=== PATIENT | female | born 1935 | race Caucasian/White ===

== ENCOUNTER 2017-08-29 02:46 | Emergency (ER) | payer BC ==
[~2017-08-29] VITALS: Ht 165.1 cm; Wt 63.5 kg
[~2017-08-29 02:46] MED LIST: ALBU18HF2 IH; ASPI-495; LISI20TA PO; PRED10TA PO
--- NOTE | 2017-08-29 03:00 | NUR ---
82 YO FEMALE BB SELF. PATIENT IS ALERT AND ORIENTED, C/O THROAT PAIN. PATIENT AMBULATED TO ER BED, SKIN WARM AND DRY, RESP EVEN AND UNLABORED. AWAITING ORDERS FROM PROVIDER, WILL CONTINUE TO MONITOR
--- NOTE | 2017-08-29 03:12 | NUR ---
PAT[address]ICK [address]RE[address] MD AT BED SIDE FOR EVAL
[2017-08-29] MEDS ORDERED: BENZONATATE 100 MG CAPSULE PO PRN (03:30)
[2017-08-29] MEDS ORDERED: ACETAMINOPHEN W/ CODEINE#3 1 EA TABLET PO ONE (03:30)
[2017-08-29] MEDS ORDERED: ACETAMINOPHEN W/ CODEINE#3 1 EA TABLET ONE (03:34)
[2017-08-29 03:49] LABS: BASOPHILS % (AUTO) 0.3 % (0.0-2.0); EOSINOPHILS % (AUTO) 2.6 % (0.0-6.0); HEMATOCRIT 43 % (33-45); HEMOGLOBIN 14.9 g/dL (11.5-14.8); LYMPHOCYTES # (AUTO) 0.9 /CMM (0.8-4.8); LYMPHOCYTES % (AUTO) 10.6 % (20.0-44.0); MEAN CORPUSCULAR HGB CONC 35 g/dl (31.0-36.0); MEAN CORPUSCULAR VOLUME 92 fL (82-100); MONOCYTES # (AUTO) 0.6 /CMM (0.1-1.30); MONOCYTES % (AUTO) 7.2 % (2.0-12.0); NEUTROPHILS # (AUTO) 6.9 /CMM (1.8-8.9); NEUTROPHILS % (AUTO) 79.3 % (43.0-81.0); PLATELET COUNT (AUTO) 233 /CMM (150-450); RDW COEFFICIENT OF VARIATION 13.2 (11.5-15.0); RED BLOOD CELL COUNT(AUTO) 4.63 MIL/uL (4.0-5.2); WHITE BLOOD COUNT (AUTO) 8.7 K/uL (4.3-11.0)
[2017-08-29 03:50] LABS: APPEARANCE,URINE CLEAR (CLEAR); BILIRUBIN,URINE NEGATIVE (NEGATIVE); BLOOD, URINE TRACE-INTA Ery/uL (NEGATIVE); COLOR,URINE YELLOW (YELLOW); KETONES,URINE NEGATIVE (NEGATIVE); LEUKOCYTE ESTERASE ,URINE NEGATIVE (NEGATIVE); NITRITE, URINE NEGATIVE (NEGATIVE); PH,URINE 7.5 (5.0-8.0); PROTEIN,URINE NEGATIVE (NEGATIVE); UGLUCOSE NEGATIVE (NEGATIVE); UROBILINOGEN,URINE 0.2 EU/dL (0.2)
[2017-08-29 03:55] LABS: BACTERIA,URINE Few /HPF (None Seen); SQUAMOUS EPITHELIAL CELL,UR Few /HPF (None Seen); WBC,URINE 0-2 /HPF (0-3)
[2017-08-29 04:09] LABS: ALANINE AMINOTRANSFERASE 21 U/L (12-78); ALBUMIN 3.6 g/dL (3.4-5.0); ALCOHOL, BLOOD < 3 mg/dL (0-0); ALKALINE PHOSPHATASE 63 U/L (46-116); ASPARTATE AMINOTRANSFERASE 22 U/L (15-37); BILIRUBIN,DIRECT 0.1 mg/dL (0.0-0.2); BILIRUBIN,TOTAL 1.2 mg/dL (0.2-1.0); CALCIUM, SERUM 9.2 mg/dL (8.5-10.1); CARBON DIOXIDE 30 mmol/L (21-32); CHLORIDE 100 mmol/L (98-107); GLUCOSE 114 mg/dL (74-106); POTASSIUM 3.1 mmol/L (3.5-5.1); SODIUM SERUM 138 mmol/L (136-145); TOTAL PROTEIN, SERUM 7.5 g/dL (6.4-8.2); UREA NITROGEN, BLOOD 14 mg/dL (7-18)
[2017-08-29 04:15] LABS: ACETAMINOPHEN 0 ug/ml (10-30)
[2017-08-29 04:17] LABS: SALICYLATE < 0.2 mg/dL (2.8-20.0)
--- NOTE | 2017-08-29 04:20 | NUR ---
ART LCWS AT BED SIDE FOR PSYCH EVAL
[2017-08-29] MEDS ORDERED: POTASSIUM CHLORIDE 20 MEQ TAB.PRT.SR PO ONE ×2 (04:30→04:33)
[2017-08-29] MEDS ORDERED: POTASSIUM CHLORIDE 20 MEQ POWDER PACKET ONE (04:36)
[2017-08-29 05:20] VITALS: BP 160/86
--- NOTE | 2017-08-29 05:20 | NUR ---
Patient discharged to home in stable condition. Written and verbal after care instructions given. Patient verbalizes understanding of instruction. PT ambulatory with a steady gait VITAL SIGNS WITHIN NORMAL LIMITS.
== END 2017-08-29 05:21 | disposition home or self-care (01) ==
LOC: ER 02:46
DX: J02.8 Acute pharyngitis due to other specified organisms (principal); F32.9 Major depressive disorder, single episode, unspecified; F41.9 Anxiety disorder, unspecified; I25.2 Old myocardial infarction; J45.909 Unspecified asthma, uncomplicated; E78.5 Hyperlipidemia, unspecified; I10 Essential (primary) hypertension; Z79.82 Long term (current) use of aspirin
CPT/HCPCS: 36415; 80048; 80076; 80305; 80329; 81001; 85025; 99284; A4606; G0480 ×2; 81000-TC; Z7610

== ENCOUNTER 2017-08-30 06:20 | Emergency (ER) | payer BC ==
[~2017-08-30] VITALS: Ht 152.4 cm; Wt 63.5 kg
--- NOTE | 2017-08-30 06:30 | NUR ---
PT PRESENTED TO THE ER WITH A C/O SORE THROAT X 4 DAYS. PT WAS HERE THE OTHER DAY AND WAS DX WITH VIRAL PHARYNGITIS. PT IS AA&O X3.
[2017-08-30] MEDS ORDERED: KETOROLAC TROMETHAMINE INJ 30 MG/ML VIAL ONE (06:42)
[2017-08-30] MEDS ORDERED: DEXAMETHASONE SOD PHOSPHATE 10 MG/ML VIAL ONE (06:42)
[2017-08-30] MEDS ORDERED: IOHEXOL-300 100 ML VIAL IV ONE (06:55)
[2017-08-30] MEDS ORDERED: CT SWABBABLE VALVE TRANS SET 1 EA INFUS.SET MC ONE (06:55)
[2017-08-30 06:56] LABS: BASOPHILS % (AUTO) 0.5 % (0.0-2.0); EOSINOPHILS % (AUTO) 2.6 % (0.0-6.0); HEMATOCRIT 41 % (33-45); HEMOGLOBIN 14.2 g/dL (11.5-14.8); MEAN CORPUSCULAR HGB CONC 35 g/dl (31.0-36.0); MEAN CORPUSCULAR VOLUME 93 fL (82-100); MONOCYTES # (AUTO) 0.5 /CMM (0.1-1.30); MONOCYTES % (AUTO) 6.9 % (2.0-12.0); PLATELET COUNT (AUTO) 216 /CMM (150-450); RDW COEFFICIENT OF VARIATION 12.8 (11.5-15.0); RED BLOOD CELL COUNT(AUTO) 4.39 MIL/uL (4.0-5.2); WHITE BLOOD COUNT (AUTO) 7.8 K/uL (4.3-11.0)
[2017-08-30] MEDS ORDERED: IV NS 0.9% 250 ML IV ONE (06:56)
[2017-08-30] MEDS ORDERED: KETOROLAC TROMETHAMINE INJ 30 MG/ML VIAL IV ONE (07:00)
[2017-08-30] MEDS ORDERED: IV NS 0.9% 500 ML BAG IV ONE (07:00)
[2017-08-30] MEDS ORDERED: DEXAMETHASONE SOD PHOSPHATE 10 MG/ML VIAL IV ONE (07:00)
[2017-08-30 07:06] LABS: CALCIUM, SERUM 8.9 mg/dL (8.5-10.1); CARBON DIOXIDE 29 mmol/L (21-32); CHLORIDE 101 mmol/L (98-107); GLUCOSE 111 mg/dL (74-106); POTASSIUM 3.3 mmol/L (3.5-5.1); SODIUM SERUM 138 mmol/L (136-145); UREA NITROGEN, BLOOD 16 mg/dL (7-18)
[2017-08-30 07:12] LABS: ALANINE AMINOTRANSFERASE 21 U/L (12-78); ALBUMIN 3.6 g/dL (3.4-5.0); ALKALINE PHOSPHATASE 60 U/L (46-116); ASPARTATE AMINOTRANSFERASE 23 U/L (15-37); BILIRUBIN,DIRECT 0.2 mg/dL (0.0-0.2); BILIRUBIN,TOTAL 1.1 mg/dL (0.2-1.0); TOTAL PROTEIN, SERUM 7.4 g/dL (6.4-8.2)
[2017-08-30 07:14] LABS: TROPONIN I < 0.017 ng/mL (0.00-0.056)
--- NOTE | 2017-08-30 07:14 | NUR ---
PT RETURNED FOM CT.
[2017-08-30] MEDS ORDERED: MORPHINE SULFATE INJ 4 MG/ML DISP.SYRIN ONE (07:19)
--- NOTE | 2017-08-30 07:20 | NUR ---
REPORT GIVEN TO NOELLE MOONEY FOR JUANCARLOS.
--- NOTE | 2017-08-30 07:22 | NUR ---
MEDICATED PT ORDERED
[2017-08-30] MEDS ORDERED: MORPHINE SULFATE INJ 2 MG/ML DISP.SYRIN IV ONE (07:30)
[2017-08-30 07:58] VITALS: BP 126/76
--- NOTE | 2017-08-30 08:01 | NUR ---
IV removed. Catheter intact and site benign. Pressure and 4x4 applied to site. No bleeding noted. Patient discharged to home in stable condition. Written and verbal after care instructions given. Patient verbalizes understanding of instruction.
== END 2017-08-30 08:00 | disposition home or self-care (01) ==
LOC: ER 06:25
DX: J02.9 Acute pharyngitis, unspecified (principal); R07.0 Pain in throat; I10 Essential (primary) hypertension; J45.909 Unspecified asthma, uncomplicated; I25.2 Old myocardial infarction; E78.5 Hyperlipidemia, unspecified; F32.9 Major depressive disorder, single episode, unspecified; Z79.82 Long term (current) use of aspirin
CPT/HCPCS: 36415; 70491; 80048; 80076; 84484; 85025; 96374; 96375; 99285; A4606; J1100; J1885; J2270; J7040; J7050; Q9967; Z7610

== ENCOUNTER 2018-08-07 11:52 | Emergency (ER) | payer BC ==
[~2018-08-07] VITALS: Ht 152.4 cm; Wt 63.5 kg
[~2018-08-07 11:52] MED LIST changes: -ASPI-495; +ASPI-495 PO
--- NOTE | 2018-08-07 12:01 | NUR ---
BIB DAUGHTER C/O DIZZINESS STARTED LAST NIGHT, +N/V. PT PRESENTS WITH FACIAL GRIMACING, MOVEMENT MAKES IT WORSE. SHE IS AOX3, VSS, AMBULATORY, RR EVEN AND UNLABORED. MAURITANIAN- AND TAMAZIGHT-SPEAKING. HOOKED TO MONITOR AND MADE COMFORTABLE. READY FOR EVAL.
[2018-08-07] MEDS ORDERED: ONDANSETRON HCL/PF 4 MG/2 ML VIAL ONE (12:02)
[2018-08-07] MEDS ORDERED: MECLIZINE HCL 12.5 MG TABLET ONE (12:03)
[2018-08-07 12:30] LABS: BASOPHILS % (AUTO) 0.5 % (0.0-2.0); EOSINOPHILS % (AUTO) 1.2 % (0.0-6.0); HEMATOCRIT 43 % (33-45); LYMPHOCYTES # (AUTO) 0.7 /CMM (0.8-4.8); LYMPHOCYTES % (AUTO) 11.4 % (20.0-44.0); MEAN CORPUSCULAR HGB CONC 35 g/dl (31.0-36.0); MEAN CORPUSCULAR VOLUME 90 fL (82-100); MONOCYTES # (AUTO) 0.2 /CMM (0.1-1.30); MONOCYTES % (AUTO) 3.1 % (2.0-12.0); NEUTROPHILS # (AUTO) 5.2 /CMM (1.8-8.9); NEUTROPHILS % (AUTO) 83.8 % (43.0-81.0); PLATELET COUNT (AUTO) 222 /CMM (150-450); RED BLOOD CELL COUNT(AUTO) 4.81 MIL/uL (4.0-5.2); WHITE BLOOD COUNT (AUTO) 6.2 K/uL (4.3-11.0)
[2018-08-07] MEDS: IV NS 0.9% 500 ML BAG IV ONE (12:32)
[2018-08-07] MEDS: ONDANSETRON HCL/PF 4 MG/2 ML VIAL IVP ONE (12:33)
[2018-08-07] MEDS: MECLIZINE HCL 12.5 MG TABLET PO ONE (12:33)
[2018-08-07] MEDS ORDERED: IPRATROPIUM NEB FS 0.5 MG/2.5 ML AMPUL.NEB ONE (12:39)
[2018-08-07] MEDS ORDERED: ALBUTEROL FS 2.5 MG/3 ML VIAL.NEB ONE (12:39)
[2018-08-07 12:42] LABS: CALCIUM, SERUM 9.1 mg/dL (8.5-10.1); CARBON DIOXIDE 28 mmol/L (21-32); CHLORIDE 100 mmol/L (98-107); GLUCOSE 154 mg/dL (74-106); SODIUM SERUM 137 mmol/L (136-145); UREA NITROGEN, BLOOD 19 mg/dL (7-18)
[2018-08-07] MEDS: ALBUTEROL FS 2.5 MG/3 ML VIAL.NEB NEB ONE (12:42)
[2018-08-07] MEDS: IPRATROPIUM NEB FS 0.5 MG/2.5 ML AMPUL.NEB NEB ONE (12:42)
[2018-08-07] MEDS ORDERED: methylPREDNISolone SOD SUCC 125 MG/2ML VIAL ONE (12:46)
[2018-08-07] MEDS ORDERED: DIAZEPAM 5 MG/ML 2 ML DISP.SYRIN ONE (12:47)
[2018-08-07 12:48] LABS: ALANINE AMINOTRANSFERASE 26 U/L (12-78); ALBUMIN 3.5 g/dL (3.4-5.0); ALKALINE PHOSPHATASE 52 U/L (46-116); ASPARTATE AMINOTRANSFERASE 34 U/L (15-37); BILIRUBIN,DIRECT 0.1 mg/dL (0.0-0.2); BILIRUBIN,TOTAL 0.9 mg/dL (0.2-1.0); TOTAL PROTEIN, SERUM 7.4 g/dL (6.4-8.2)
[2018-08-07] MEDS: DIAZEPAM 5 MG/ML 2 ML DISP.SYRIN IV ONE (12:55)
[2018-08-07] MEDS: methylPREDNISolone SOD SUCC 125 MG/2ML VIAL IV ONE (12:56)
--- NOTE | 2018-08-07 12:56 | NUR ---
PT BACK FROM CT. MEDS GIVEN. CURRENTLY ON BREATHING TX. AL WELL, WILL CONT TO MONITOR.
[2018-08-07] MEDS ORDERED: HYDR12.55 PO (13:11)
--- NOTE | 2018-08-07 13:39 | NUR ---
IV removed. Catheter intact and site benign. Pressure and 4x4 applied to site. No bleeding noted.Patient discharged to home in stable condition. Written and verbal after care instructions given. Patient verbalizes understanding of instruction.
[2018-08-07 13:40] VITALS: BP 112/73
== END 2018-08-07 13:42 | disposition home or self-care (01) ==
LOC: ER 11:52
DX: R42 Dizziness and giddiness (principal); I10 Essential (primary) hypertension; I25.2 Old myocardial infarction; J45.909 Unspecified asthma, uncomplicated; E78.5 Hyperlipidemia, unspecified; F32.9 Major depressive disorder, single episode, unspecified; Z79.82 Long term (current) use of aspirin
CPT/HCPCS: 36415; 70450; 71045; 80048; 80076; 84484; 85025; 93005; 94640; 96374; 96375; 99284; J2405; J2930; J3360; J7040; J8597

== ENCOUNTER 2018-11-26 21:59 | Emergency (ER) | payer BC ==
[~2018-11-26] VITALS: Ht 152.4 cm; Wt 65.8 kg
[~2018-11-26 21:59] MED LIST changes: +HYDR12.55 PO; -LISI20TA PO; -PRED10TA PO
[2018-11-26] MEDS ORDERED: ONDANSETRON HCL/PF 4 MG/2 ML VIAL ONE (22:48)
[2018-11-26] MEDS ORDERED: MORPHINE SULFATE INJ 4 MG/ML DISP.SYRIN ONE (22:48)
[2018-11-26 22:51] LABS: BASOPHILS # (AUTO) 0.1 /CMM (0.0-0.2); BASOPHILS % (AUTO) 0.7 % (0.0-2.0); EOSINOPHILS % (AUTO) 2.5 % (0.0-6.0); HEMATOCRIT 40 % (33-45); HEMOGLOBIN 14.2 g/dL (11.5-14.8); LYMPHOCYTES % (AUTO) 20.8 % (20.0-44.0); MEAN CORPUSCULAR HGB CONC 36 g/dl (31.0-36.0); MEAN CORPUSCULAR VOLUME 88 fL (82-100); MONOCYTES # (AUTO) 0.7 /CMM (0.1-1.30); MONOCYTES % (AUTO) 7.6 % (2.0-12.0); NEUTROPHILS # (AUTO) 6.4 /CMM (1.8-8.9); NEUTROPHILS % (AUTO) 68.4 % (43.0-81.0); PLATELET COUNT (AUTO) 290 /CMM (150-450); RED BLOOD CELL COUNT(AUTO) 4.51 MIL/uL (4.0-5.2); WHITE BLOOD COUNT (AUTO) 9.4 K/uL (4.3-11.0)
[2018-11-26] MEDS ORDERED: MORPHINE SULFATE INJ 2 MG/ML DISP.SYRIN IV ONE (23:00)
[2018-11-26] MEDS ORDERED: IV NS 0.9% 1,000 ML BAG IV ONE (23:00)
[2018-11-26] MEDS ORDERED: ONDANSETRON HCL/PF 4 MG/2 ML VIAL IVP ONE (23:00)
[2018-11-26 23:04] LABS: CALCIUM, SERUM 9.4 mg/dL (8.5-10.1); CARBON DIOXIDE 29 mmol/L (21-32); CHLORIDE 94 mmol/L (98-107); CREATININE 1.2 mg/dL (0.6-1.3); GLUCOSE 98 mg/dL (74-106); POTASSIUM 3.1 mmol/L (3.5-5.1); SODIUM SERUM 131 mmol/L (136-145); UREA NITROGEN, BLOOD 18 mg/dL (7-18)
[2018-11-27 00:26] LABS: APPEARANCE,URINE Clear (CLEAR); BILIRUBIN,URINE Negative (NEGATIVE); BLOOD, URINE Trace-intact Ery/uL (NEGATIVE); COLOR,URINE Yellow (YELLOW); KETONES,URINE Negative (NEGATIVE); LEUKOCYTE ESTERASE ,URINE Trace (NEGATIVE); NITRITE, URINE Negative (NEGATIVE); PROTEIN,URINE 100 mg/dl (NEGATIVE); UGLUCOSE Negative (NEGATIVE); UROBILINOGEN,URINE 0.2 EU/dL (0.2)
[2018-11-27 00:33] LABS: BACTERIA,URINE Few /HPF (None Seen); SQUAMOUS EPITHELIAL CELL,UR Few /HPF (None Seen); WBC,URINE 51-80 /HPF (0-3)
[2018-11-27] MEDS ORDERED: CEFTRIAXONE 1GM BAG (ER ONLY) 1 GM/50 ML PIGGYBACK IV ONE (01:00)
[2018-11-27] MEDS ORDERED: CEFTRIAXONE 1GM BAG (ER ONLY) 50 ML IV ONE (01:02)
[2018-11-27 02:20] VITALS: BP 123/67
== END 2018-11-27 01:45 | disposition home or self-care (01) ==
LOC: ER 22:06
DX: N39.0 Urinary tract infection, site not specified (principal); I10 Essential (primary) hypertension; I25.2 Old myocardial infarction; J45.909 Unspecified asthma, uncomplicated; E78.5 Hyperlipidemia, unspecified; F32.9 Major depressive disorder, single episode, unspecified; Z79.82 Long term (current) use of aspirin; Z79.899 Other long term (current) drug therapy
CPT/HCPCS: 36415; 74176; 80048; 81001; 85025; 87040 ×2; 96365; 96375; 99284; J0696; J2270; J2405; J7030; 81000-TC; 87086-TC

== ENCOUNTER → 2018-11-27 | Emergency (ER) | payer BC ==
[~2018-11-27] VITALS: Ht 154.9 cm; Wt 64.4 kg
[2018-11-27 11:24] VITALS: BP 143/99
--- NOTE | 2018-11-27 11:47 | NUR ---
PER DR ZOHRA BECERRA TO REMOVE HORNE
--- NOTE | 2018-11-27 12:02 | NUR ---
Patient discharged to home in stable condition. Written and verbal after care instructions given. Patient verbalizes understanding of instruction.
--- NOTE | 2018-11-27 12:03 | NUR ---
NOTED HORNE BAG 300 MLG YELLOW LIGHT ORANGE URINE. OK TO DC PER DR العلي. PT'S ICELANDIC SPEAKING ONLY. CHRISTOPH EMT AT BEDSIDE FOR LINES TENDER. AGREES TO FOLLW UP W PMD
== END | disposition home or self-care (01) ==
LOC: ER 11:09
DX: Z46.6 Encounter for fitting and adjustment of urinary device (principal); I10 Essential (primary) hypertension; I25.2 Old myocardial infarction; E78.5 Hyperlipidemia, unspecified; F32.9 Major depressive disorder, single episode, unspecified; Z60.2 Problems related to living alone; Z79.899 Other long term (current) drug therapy; Z79.82 Long term (current) use of aspirin

== ENCOUNTER 2020-05-13 13:31 | Emergency (ER) | payer BC, OTHER ==
[~2020-05-13] VITALS: Ht 152.4 cm; Wt 65.8 kg
[2020-05-13 14:03] LABS: BASOPHILS # (AUTO) 0.1 /CMM (0.0-0.2); BASOPHILS % (AUTO) 0.9 % (0.0-2.0); EOSINOPHILS % (AUTO) 1.9 % (0.0-6.0); HEMATOCRIT 42 % (33-45); HEMOGLOBIN 14.7 g/dL (11.5-14.8); LYMPHOCYTES % (AUTO) 15.1 % (20.0-44.0); MEAN CORPUSCULAR HGB CONC 35 g/dl (31.0-36.0); MEAN CORPUSCULAR VOLUME 91 fL (82-100); MONOCYTES # (AUTO) 0.5 /CMM (0.1-1.30); MONOCYTES % (AUTO) 7.1 % (2.0-12.0); NEUTROPHILS # (AUTO) 5.1 /CMM (1.8-8.9); PLATELET COUNT (AUTO) 257 /CMM (150-450); RED BLOOD CELL COUNT(AUTO) 4.59 MIL/uL (4.0-5.2); WHITE BLOOD COUNT (AUTO) 6.8 K/uL (4.3-11.0)
[2020-05-13 14:12] LABS: CALCIUM, SERUM 9.1 mg/dL (8.5-10.1); CARBON DIOXIDE 30 mmol/L (21-32); CHLORIDE 98 mmol/L (98-107); CREATININE 0.9 mg/dL (0.6-1.3); GLUCOSE 93 mg/dL (74-106); POTASSIUM 3.1 mmol/L (3.5-5.1); SODIUM SERUM 136 mmol/L (136-145); UREA NITROGEN, BLOOD 17 mg/dL (7-18)
[2020-05-13] MEDS ORDERED: ASPIRIN 81 MG TAB.CHEW PO ONE (14:30)
[2020-05-13] MEDS ORDERED: ASPIRIN 81 MG TAB.CHEW ONE (14:32)
[2020-05-13] MEDS ORDERED: ONDANSETRON HCL/PF 4 MG/2 ML VIAL ONE (14:36)
[2020-05-13] MEDS ORDERED: ONDANSETRON HCL/PF - ER 4 MG/2 ML VIAL IV ONE (15:00)
--- NOTE | 2020-05-13 15:25 | NUR ---
Covid antigen swab done and taken to the lab.
[2020-05-13] MEDS ORDERED: CLON0.1T PO (15:52)
[2020-05-13] MEDS ORDERED: AMLO-212 PO (15:52)
[2020-05-13] MEDS ORDERED: HYDR25TA4 PO (15:52)
[2020-05-13] MEDS ORDERED: LOSA50TA39 PO (15:52)
[2020-05-13] MEDS ORDERED: POTA8TAB3 PO (15:52)
--- NOTE | 2020-05-13 16:30 | NUR ---
DR. FERGUSON SPEAKING WITH DOCTOR GREEN AND ACCEPTED TO [facility]. AWAITING BED.
--- NOTE | 2020-05-13 16:37 | NUR ---
ACCEPTED TO [facility] UNDER DR. PHYLLIS BALDWIN
[2020-05-13] MEDS ORDERED: ACETAMINOPHEN ES 500 MG TABLET ONE (19:47)
[2020-05-13] MEDS ORDERED: ACETAMINOPHEN ES 500 MG TABLET PO ONE (20:00)
--- NOTE | 2020-05-13 20:09 | NUR ---
PLANT ECOLOGIST STATES THAT SHE WILL CALL BACK WITH MORE INFORMATION.
--- NOTE | 2020-05-13 20:09 | NUR ---
ROOM 209-A NURSEYESI [phone] DR. NICHOLSON-ACCEPTING
--- NOTE | 2020-05-13 20:57 | NUR ---
TRANSPORT ETA @ [id number] WITH [facility] NICOLASA LIGHTING DESIGNER [phone]
--- NOTE | 2020-05-13 21:34 | NUR ---
REPORT GIVEN TO BERTA DRAKE AT [facility] FOR JU[facility]AR[facility].
[2020-05-13 21:52] VITALS: BP 116/58
--- NOTE | 2020-05-13 21:57 | NUR ---
REPORT GIVEN TRANSPORT TEAM FOR JUANCARL[facility]. AND TRANSFERRIGN RESPONSIBILTIES.
== END 2020-05-13 22:00 | disposition short-term general hospital (02) ==
LOC: ER 13:37
DX: R07.9 Chest pain, unspecified (principal); I10 Essential (primary) hypertension; Z20.822 Contact with and (suspected) exposure to COVID-19; Z79.82 Long term (current) use of aspirin; Z79.899 Other long term (current) drug therapy; I25.2 Old myocardial infarction; E78.5 Hyperlipidemia, unspecified; J45.909 Unspecified asthma, uncomplicated
CPT/HCPCS: 36415; 71045; 80048; 84484 ×2; 85025; 87426; 93005 ×2; 96374; 99285; J2405; C9803

== ENCOUNTER 2020-07-08 15:59 | Inpatient (IN) | payer BC, MEDICAID ==
[~2020-07-08] VITALS: Ht 152.4 cm; Wt 63.5 kg
[~2020-07-08 15:59] MED LIST changes: +AMLO-212 PO; +CLON0.1T PO; -HYDR12.55 PO; +HYDR25TA4 PO; +LOSA50TA39 PO; +POTA8TAB3 PO
--- NOTE | 2020-07-08 16:10 | NUR ---
L sided chest pain since yesterday. weak and nauseated today. Patient a/ox4, breathing even and unlabored, daughter at bedside. Attached to the awake overnight monitor.
[2020-07-08] MEDS ORDERED: ONDANSETRON HCL/PF 4 MG/2 ML VIAL IVP ONE (16:30)
[2020-07-08] MEDS ORDERED: IV NS 0.9% 1,000 ML BAG IV ONE (16:30)
[2020-07-08] MEDS ORDERED: ASPIRIN 325 MG TABLET PO ONE (16:30)
[2020-07-08] MEDS ORDERED: ASPIRIN 325 MG TABLET ONE (16:38)
[2020-07-08] MEDS ORDERED: ONDANSETRON HCL/PF 4 MG/2 ML VIAL ONE (16:38)
[2020-07-08 16:44] LABS: BASOPHILS # (AUTO) 0.1 /CMM (0.0-0.2); BASOPHILS % (AUTO) 0.8 % (0.0-2.0); EOSINOPHILS % (AUTO) 2.8 % (0.0-6.0); HEMATOCRIT 40 % (33-45); LYMPHOCYTES # (AUTO) 1.3 /CMM (0.8-4.8); LYMPHOCYTES % (AUTO) 18.2 % (20.0-44.0); MEAN CORPUSCULAR HGB CONC 35 g/dl (31.0-36.0); MEAN CORPUSCULAR VOLUME 90 fL (82-100); MONOCYTES # (AUTO) 0.5 /CMM (0.1-1.30); MONOCYTES % (AUTO) 6.7 % (2.0-12.0); NEUTROPHILS # (AUTO) 5.1 /CMM (1.8-8.9); NEUTROPHILS % (AUTO) 71.5 % (43.0-81.0); PLATELET COUNT (AUTO) 254 /CMM (150-450); RED BLOOD CELL COUNT(AUTO) 4.49 MIL/uL (4.0-5.2); WHITE BLOOD COUNT (AUTO) 7.1 K/uL (4.3-11.0)
[2020-07-08 17:31] LABS: ALANINE AMINOTRANSFERASE 19 U/L (12-78); ALBUMIN 3.3 g/dL (3.4-5.0); ALKALINE PHOSPHATASE 45 U/L (46-116); ASPARTATE AMINOTRANSFERASE 19 U/L (15-37); B-TYPE NATRIURETIC PEPTIDE 35 PG/ML (0-125); BILIRUBIN,DIRECT 0.1 mg/dL (0.0-0.2); BILIRUBIN,TOTAL 0.6 mg/dL (0.2-1.0); CALCIUM, SERUM 8.4 mg/dL (8.5-10.1); CARBON DIOXIDE 32 mmol/L (21-32); CHLORIDE 98 mmol/L (98-107); CREATININE 0.9 mg/dL (0.6-1.3); GLUCOSE 98 mg/dL (74-106); POTASSIUM 2.9 mmol/L (3.5-5.1); SODIUM SERUM 137 mmol/L (136-145); TOTAL PROTEIN, SERUM 6.3 g/dL (6.4-8.2); UREA NITROGEN, BLOOD 16 mg/dL (7-18)
[2020-07-08] MEDS ORDERED: POTASSIUM CL. PREMIX PERIPHER. 50 ML ONE (17:53)
[2020-07-08] MEDS: POTASSIUM CL. PREMIX PERIPHER. 50 ML IV SCH ×4 (18:00→19:07)
--- NOTE | 2020-07-08 18:02 | NUR ---
rapit covid -19 test swab is taken, send to the lab.
[2020-07-08 18:52] LABS: BILIRUBIN,URINE Negative (NEGATIVE); COLOR,URINE YELLOW (YELLOW); LEUKOCYTE ESTERASE ,URINE Negative (NEGATIVE); NITRITE, URINE Negative (NEGATIVE); PH,URINE 7.5 (5.0-8.0); PROTEIN,URINE Negative (NEGATIVE); UGLUCOSE Negative (NEGATIVE); UROBILINOGEN,URINE 0.2 EU/dL (0.2)
--- NOTE | 2020-07-08 19:03 | NUR ---
PATIENT COMPLETED 1ST BAG OF POTASSIUM 10MEQ, UNABLE TO TOLERATE THE REST OF THE IV POTASSIUM, NOLAN ESCALANTE AT BEDSIDE, GAVE ORDER TO DC THE CURRENT ORDER OF POTASSIUM AND TO CHANGE IT TO KDUR 60MEQ PO.
[2020-07-08] MEDS ORDERED: POTASSIUM CHLORIDE 20 MEQ TAB.PRT.SR PO ONE ×2 (19:08→19:30)
[2020-07-08 19:17] LABS: BACTERIA,URINE Rare /HPF (None Seen); SQUAMOUS EPITHELIAL CELL,UR 0-2 /HPF (None Seen); WBC,URINE 0-2 /HPF (0-3)
--- NOTE | 2020-07-08 19:20 | NUR ---
REC'D REPORT FROM NOELLE CHANEY FOR JUANCARLOS. PT RESTING COMFORTABLY IN BED. VITAL SIGNS STABLE. STILL ON MONITOR, WILL CONTINUE TO MONITOR
[2020-07-08] MEDS ORDERED: NITROGLYCERIN 0.4 MG/TAB BOTTLE SL ONE (19:30)
[2020-07-08] MEDS ORDERED: ALBUTEROL SULFATE INH 18 GM HFA.AER.AD IH PRN (19:30)
[2020-07-08] MEDS ORDERED: HYDROCODONE/APAP 5/325MG TABLET PO PRN (19:30)
[2020-07-08] MEDS ORDERED: MAGNESIUM HYDROXIDE 30 ML UDC PO PRN (19:30)
[2020-07-08] MEDS ORDERED: ONDANSETRON HCL/PF 4 MG/2 ML VIAL IVP PRN (19:30)
[2020-07-08] MEDS ORDERED: Z GUARD REMEDY 2 OZ OINT TP PRN (19:30)
[2020-07-08] MEDS ORDERED: ZOLPIDEM TARTRATE 5 MG TABLET PO PRN (19:30)
[2020-07-08] MEDS ORDERED: ACETAMINOPHEN 325 MG TABLET PO PRN (19:30)
[2020-07-08] MEDS ORDERED: MORPHINE SULFATE INJ 2 MG/ML DISP.SYRIN IV PRN (19:30)
--- NOTE | 2020-07-08 19:34 | NUR ---
CALL FROM LAB. RAPID COVID NEGATIVE.
--- NOTE | 2020-07-08 20:13 | NUR ---
TELE [phone]
--- NOTE | 2020-07-08 20:24 | NUR ---
give report to Ms Herminia DRAKE on 3W for JUANCARLOS
[2020-07-08 20:49] VITALS: BP 142/65
[2020-07-08] MEDS ORDERED: ENOXAPARIN SODIUM 30 MG/0.3 ML DISP.SYRIN SQ SCH (21:00)
--- NOTE | 2020-07-08 21:00 | NUR ---
PT SENT TO 3W ROOM 325-1 VIA ACLS PROTOCOL, PT IS ALERT ORIENTED ON ROOM AIR SPO2 98% BELONINGING AT BEDSIDE, MANAGER PROVIDER RELATIONS AND RN AT BEDSIDE, SAFELY TRANSFER FROM [facility] TO BED ENDORSED TO RECEIVING NURSE
[2020-07-08] MEDS: HYDROCHLOROTHIAZIDE 25 MG TABLET PO SCH (21:53)
--- NOTE | 2020-07-08 22:05 | NUR ---
nitroglycerin 0.4mg SL not available in the pyxis, charge nurse Em made aware. Patient is not complaining of chest pain at this time.
[2020-07-09] VITALS: BP 129/52
[2020-07-09 00:01] VITALS: BP 129/52
[2020-07-09 04:00] VITALS: BP 114/86
[2020-07-09 04:13] VITALS: BP 114/86
[2020-07-09 06:15] LABS: BASOPHILS # (AUTO) 0.1 /CMM (0.0-0.2); BASOPHILS % (AUTO) 1.1 % (0.0-2.0); EOSINOPHILS % (AUTO) 3.6 % (0.0-6.0); HEMATOCRIT 40 % (33-45); HEMOGLOBIN 13.9 g/dL (11.5-14.8); LYMPHOCYTES # (AUTO) 1.3 /CMM (0.8-4.8); LYMPHOCYTES % (AUTO) 21.8 % (20.0-44.0); MEAN CORPUSCULAR HGB CONC 35 g/dl (31.0-36.0); MEAN CORPUSCULAR VOLUME 90 fL (82-100); MONOCYTES # (AUTO) 0.5 /CMM (0.1-1.30); NEUTROPHILS # (AUTO) 3.9 /CMM (1.8-8.9); NEUTROPHILS % (AUTO) 64.5 % (43.0-81.0); PLATELET COUNT (AUTO) 237 /CMM (150-450); RED BLOOD CELL COUNT(AUTO) 4.39 MIL/uL (4.0-5.2)
[2020-07-09 07:35] LABS: CALCIUM, SERUM 8.9 mg/dL (8.5-10.1); CREATININE 0.7 mg/dL (0.6-1.3); POTASSIUM 3.8 mmol/L (3.5-5.1)
--- NOTE | 2020-07-09 07:48 | NUR ---
RN OPENING NOTE PATIENT AWAKE IN BED RESTING. A/O X3 AND UNDERSTANDS SOME CHINESE. NO COMPLAINT OF PAIN OR NAUSEA. NO SIGNS OF PAIN PRESENT. CURRENTLY ON RA WITH NO SOB OR RESPIRATORY DISTRESS PRESENT. ON SIGNAL INTELLIGENCE ANALYST. SKIN IS INTACT. NO EDEMA PRESENT. PATIENT IS SELF AMBULATORY. HL PRESENT ON L FA [address] G[address] SAFETY MEASURES IN PLACE. SIDE RAILS RAISED. BED LOWERED. CALL LIGHT WITHIN REACH. WILL CONTINUE TO MONITOR.
[2020-07-09 08:00] VITALS: BP 131/64
[2020-07-09] MEDS: HYDROCHLOROTHIAZIDE 25 MG TABLET PO SCH (08:27)
[2020-07-09] MEDS ORDERED: LOSARTAN POTASSIUM 50 MG TABLET PO SCH (09:00)
[2020-07-09] MEDS ORDERED: ATORVASTATIN 10 MG TABLET PO SCH (09:00)
[2020-07-09] MEDS ORDERED: AMLODIPINE BESYLATE 5 MG TABLET PO SCH (09:00)
[2020-07-09] MEDS ORDERED: ASPIRIN 81 MG TAB.CHEW PO SCH (09:00)
[2020-07-09] MEDS ORDERED: IV NS 0.9% 250 ML IV ONE (10:48)
[2020-07-09] MEDS ORDERED: IOHEXOL-350 100 ML VIAL IV ONE (10:48)
[2020-07-09] MEDS: METOPROLOL TARTRATE INJ 5 MG/5 ML AMPUL IVP PRN ×2 (11:04→11:09)
[2020-07-09] MEDS ORDERED: METOPROLOL TARTRATE INJ 5 MG/5 ML AMPUL ONE ×2 (11:05→11:48)
--- NOTE | 2020-07-09 11:17 | NUR ---
Report given to NOELLE Marquez for JUANCARLOS.
[2020-07-09] MEDS ORDERED: NITROGLYCERIN 0.4 MG/TAB BOTTLE SL ONE (11:30)
[2020-07-09] MEDS ORDERED: METOPROLOL TARTRATE 50 MG TABLET PO SCH (12:00)
[2020-07-09 12:56] VITALS: BP 125/65
--- NOTE | 2020-07-09 14:36 | NUR ---
MENTALLY IMPAIRED TEACHER NOTE PATIENT DISCHARGED HOME. F/U WITH PCP AND DR CORNELIUS WITHIN 1 WEEK. EDUCATION OF FOLLOW UP GIVEN TO PATIENT AND REINFORCED. EXITCARE UTILIZED AND EDUCATION FOR HOME GIVEN. HL REMOVED. ID BAND REMOVED. PATIENT WENT HOME WITH SON VIA PRIVATE CAR.
== END 2020-07-09 14:10 | disposition home or self-care (01) | DRG 313 ==
LOC: ER 15:59 → TELE 20:28 → MED 07-09 09:21
PROVIDERS: ADMIT Nurse Practitioner Acute Care; ATTEND Internal Medicine
DX: R07.89 Other chest pain (principal); E44.1 Mild protein-calorie malnutrition; D68.69 Other thrombophilia; E78.5 Hyperlipidemia, unspecified; E87.6 Hypokalemia; I10 Essential (primary) hypertension; J45.909 Unspecified asthma, uncomplicated; E66.9 Obesity, unspecified; Z68.27 Body mass index [BMI] 27.0-27.9, adult; I25.2 Old myocardial infarction; Z79.82 Long term (current) use of aspirin; Z20.822 Contact with and (suspected) exposure to COVID-19
CPT/HCPCS: 36415; 71045-TC; 75574; 80048-TC; 80061-TC; 80076-TC; 81001; 83605-TC; 83735-TC; 83880; 84100-TC; 84443-TC; 84484-TC; 85025-TC; 85730-TC; 87081-TC; 93307-TC; C9803; G0378; J1650; J2405; J3480; J3490; J7030; J7040; J7050; Q9967

== ENCOUNTER 2021-05-12 12:15 | Emergency (ER) | payer BC, OTHER ==
[~2021-05-12] VITALS: Ht 152.4 cm; Wt 59.0 kg
--- NOTE | 2021-05-12 12:15 | NUR ---
SENT TO ER BED 4. BIB SON C/O HEADACHE AND WEAKNESS STARTED LAST NIGHT AND ALSO EPISODE OF HIGH BP 170 SYSTOLIC. PT ATTACHED TO MONITOR. WARM BLANKET PROVIDED FOR COMFORT. WILL ONTINUE TO MONITOR.
--- NOTE | 2021-05-12 12:30 | NUR ---
AT BEDSIDE FOR EVAL.
--- NOTE | 2021-05-12 12:50 | NUR ---
IV ESTABLISHED R HAND 20G. LABS DRAWN AND COLLECTED AT BEDSIDE. CONVERTED TO SALINE LOCK.
[2021-05-12] MEDS ORDERED: IV NS 0.9% 1,000 ML BAG IV ONE (13:00)
--- NOTE | 2021-05-12 13:26 | NUR ---
PT RETURNED FROM [facility]IA [facility]
[2021-05-12 13:33] LABS: BASOPHILS % (AUTO) 0.8 % (0.0-2.0); EOSINOPHILS % (AUTO) 3.6 % (0.0-6.0); HEMATOCRIT 44 % (33-45); LYMPHOCYTES # (AUTO) 0.9 K/uL (0.8-4.8); LYMPHOCYTES % (AUTO) 17.8 % (20.0-44.0); MEAN CORPUSCULAR HGB CONC 35 g/dl (31.0-36.0); MEAN CORPUSCULAR VOLUME 91 fL (82-100); MONOCYTES # (AUTO) 0.3 K/uL (0.1-1.30); MONOCYTES % (AUTO) 5.5 % (2.0-12.0); NEUTROPHILS # (AUTO) 3.7 K/uL (1.8-8.9); NEUTROPHILS % (AUTO) 72.3 % (43.0-81.0); PLATELET COUNT (AUTO) 195 K/uL (150-450); RED BLOOD CELL COUNT(AUTO) 4.77 MIL/uL (4.0-5.2); WHITE BLOOD COUNT (AUTO) 5.1 K/uL (4.3-11.0)
--- NOTE | 2021-05-12 13:34 | NUR ---
URINE COLLETED AND SENT
[2021-05-12 13:40] LABS: ALANINE AMINOTRANSFERASE 22 U/L (12-78); ALBUMIN 3.6 g/dL (3.4-5.0); ALKALINE PHOSPHATASE 59 U/L (46-116); ASPARTATE AMINOTRANSFERASE 25 U/L (15-37); BILIRUBIN,DIRECT 0.1 mg/dL (0.0-0.2); CALCIUM, SERUM 9.2 mg/dL (8.5-10.1); CARBON DIOXIDE 26 mmol/L (21-32); CHLORIDE 102 mmol/L (98-107); CREATININE 0.7 mg/dL (0.6-1.3); GLUCOSE 97 mg/dL (74-106); POTASSIUM 4.4 mmol/L (3.5-5.1); SODIUM SERUM 134 mmol/L (136-145); TOTAL PROTEIN, SERUM 6.8 g/dL (6.4-8.2); UREA NITROGEN, BLOOD 14 mg/dL (7-18)
[2021-05-12 14:13] LABS: BILIRUBIN,URINE NEGATIVE (NEGATIVE); LEUKOCYTE ESTERASE ,URINE NEGATIVE (NEGATIVE); NITRITE, URINE NEGATIVE (NEGATIVE); PH,URINE 7.5 (5.0-8.0); PROTEIN,URINE NEGATIVE (NEGATIVE); UGLUCOSE NEGATIVE (NEGATIVE); UROBILINOGEN,URINE 0.2 EU/dL (0.2)
[2021-05-12 14:14] LABS: COLOR,URINE STRAW (YELLOW)
[2021-05-12] MEDS ORDERED: POTA8TAB3 PO (14:15)
--- NOTE | 2021-05-12 14:15 | NUR ---
RAPID COVID COLLECTED AND SENT
--- NOTE | 2021-05-12 15:09 | NUR ---
BENITEZ CALLED FROM [facility] [phone] PLEASE CALL WHEN TRIPONIN IS NEGATIVE.
[2021-05-12 16:01] VITALS: BP 123/82
== END 2021-05-12 16:02 | disposition home or self-care (01) ==
LOC: ER 12:22
DX: R55 Syncope and collapse (principal); R51.9 Headache, unspecified; I10 Essential (primary) hypertension; R53.83 Other fatigue; Z20.822 Contact with and (suspected) exposure to COVID-19; F32.A Depression, unspecified; I25.2 Old myocardial infarction; E78.5 Hyperlipidemia, unspecified; J45.909 Unspecified asthma, uncomplicated; I25.10 Atherosclerotic heart disease of native coronary artery without angina pectoris
CPT/HCPCS: 36415; 70450; 71045; 80048; 80076; 81003; 84484 ×3; 85025; 85730; 87426; 93005; 99285; J7030; C9803

== ENCOUNTER 2021-11-14 20:41 | Emergency (ER) | payer BC, OTHER ==
[~2021-11-14] VITALS: Ht 152.4 cm; Wt 63.5 kg
[~2021-11-14 20:41] MED LIST changes: -ALBU18HF2 IH; -ASPI-495 PO; -HYDR25TA4 PO
--- NOTE | 2021-11-14 21:28 | NUR ---
BIBFAMILY C/O MOTT AND HIGH BP FOR THE PAST DAY. PT STATED SHE TESTED COVID + MONDAY. PT A/OX4. TOLERATING R/A WITH NO RESP DISTRESS. CONNECTED PT TO POX AND MONITOR. SAFETY MEASURES IN PLACE.
--- NOTE | 2021-11-14 21:54 | NUR ---
Stephen shepherd in [facility] - 11/14/21 at 2154 by RAMOS Dick STEELE #20G S/L. BURLAPPER AT 'S BEDSIDE
--- NOTE | 2021-11-14 21:55 | NUR ---
L CEDRIC #20G S/L. PHYSICAL THERAPY COORDINATOR AT PT'S BEDSIDE
--- NOTE | 2021-11-14 23:02 | NUR ---
COVID ANTIGEN SWAB COLLECTED AND SENT TO LAB
[2021-11-14 23:04] LABS: CALCIUM, SERUM 8.3 mg/dL (8.5-10.1); CARBON DIOXIDE 24 mmol/L (21-32); CHLORIDE 100 mmol/L (98-107); GLUCOSE 107 mg/dL (74-106); POTASSIUM 4.1 mmol/L (3.5-5.1); SODIUM SERUM 132 mmol/L (136-145); UREA NITROGEN, BLOOD 13 mg/dL (7-18)
[2021-11-14 23:43] LABS: BASOPHILS % (AUTO) 0.5 % (0.0-2.0); EOSINOPHILS % (AUTO) 3.4 % (0.0-6.0); HEMATOCRIT 38 % (33-45); HEMOGLOBIN 13.7 g/dL (11.5-14.8); LYMPHOCYTES # (AUTO) 1.2 K/uL (0.8-4.8); LYMPHOCYTES % (AUTO) 26.2 % (20.0-44.0); MEAN CORPUSCULAR HGB CONC 36 g/dl (31.0-36.0); MEAN CORPUSCULAR VOLUME 89 fL (82-100); MONOCYTES # (AUTO) 0.4 K/uL (0.1-1.30); MONOCYTES % (AUTO) 9.2 % (2.0-12.0); NEUTROPHILS # (AUTO) 2.7 K/uL (1.8-8.9); NEUTROPHILS % (AUTO) 60.7 % (43.0-81.0); PLATELET COUNT (AUTO) 159 K/uL (150-450); RED BLOOD CELL COUNT(AUTO) 4.29 MIL/uL (4.0-5.2); WHITE BLOOD COUNT (AUTO) 4.4 K/uL (4.3-11.0)
--- NOTE | 2021-11-15 00:20 | NUR ---
POSITIVE COVID 19
[2021-11-15 02:54] VITALS: BP 143/71
--- NOTE | 2021-11-15 02:57 | NUR ---
Patient discharged to home in stable condition. Written and verbal after care instructions given. Patient verbalizes understanding of instruction.IV removed. Catheter intact and site benign. Pressure and 4x4 applied to site. No bleeding noted. PT ambulatory with a steady gait
== END 2021-11-15 00:45 | disposition home or self-care (01) ==
LOC: ER 20:46
DX: I10 Essential (primary) hypertension (principal); R51.9 Headache, unspecified; U07.1 COVID-19; E78.5 Hyperlipidemia, unspecified; I25.10 Atherosclerotic heart disease of native coronary artery without angina pectoris; I25.2 Old myocardial infarction; J45.909 Unspecified asthma, uncomplicated; Z79.899 Other long term (current) drug therapy
CPT/HCPCS: 36415; 70450-TC; 71045-TC; 80048-TC; 84484-TC; 85025-TC; C9803

== ENCOUNTER → 2022-02-16 | Emergency (ER) | payer BC, OTHER ==
[~2022-02-16] VITALS: Ht 152.4 cm; Wt 63.5 kg
[~2022-02-16] MED LIST changes: +HYDR-3976 PO; +HYDROCODONE/APAP 5/325MG TABLET ONE; +HYDROCODONE/APAP 5/325MG TABLET PO ONE; +HYDROCODONE/APAP 7.5/325MG 1 EACH TABLET PO ONE; +IBUP-1955 PO; +LIDO30AD10 TP; +LIDOCAINE 5% (PATCH) 1 EA PATCH TP ONE
--- NOTE | 2022-02-16 13:00 | NUR ---
bib self c/o R side rib area pain s/p glf at 10am. sent [facility] [place] rays. On rooom air, breathing evenly and unlabored. Kept comfortable, will continue to monitor accordingly.
[2022-02-16 17:28] VITALS: BP 154/79
--- NOTE | 2022-02-16 17:28 | NUR ---
Patient discharged to home wiit her kids in stable condition. Written and verbal after care instructions given. Patient and family verbalizes understanding of instruction.
== END | disposition home or self-care (01) ==
LOC: ER 12:19
DX: S20.211A Contusion of right front wall of thorax, initial encounter (principal); I10 Essential (primary) hypertension; E78.00 Pure hypercholesterolemia, unspecified; I25.10 Atherosclerotic heart disease of native coronary artery without angina pectoris; J45.909 Unspecified asthma, uncomplicated; F32.A Depression, unspecified; Z86.73 Personal history of transient ischemic attack (TIA), and cerebral infarction without residual deficits; Z60.2 Problems related to living alone; W01.0XXA Fall on same level from slipping, tripping and stumbling without subsequent striking against object, initial encounter; Y93.01 Activity, walking, marching and hiking; Y92.89 Other specified places as the place of occurrence of the external cause; Y99.8 Other external cause status
CPT/HCPCS: 71100-TC

== ENCOUNTER 2022-10-03 18:16 | Emergency (ER) | payer BC, OTHER ==
[~2022-10-03] VITALS: Ht 152.4 cm; Wt 65.8 kg
[~2022-10-03 18:16] MED LIST changes: -HYDROCODONE/APAP 5/325MG TABLET ONE; -HYDROCODONE/APAP 5/325MG TABLET PO ONE; -HYDROCODONE/APAP 7.5/325MG 1 EACH TABLET PO ONE; -LIDOCAINE 5% (PATCH) 1 EA PATCH TP ONE
--- NOTE | 2022-10-03 18:45 | NUR ---
dr gonzalez at bedside for eval
[2022-10-03] MEDS ORDERED: methylPREDNISolone SOD SUCC 125 MG/2ML VIAL ONE (18:48)
[2022-10-03 19:00] LABS: BASOPHILS % (AUTO) 0.5 % (0.0-2.0); EOSINOPHILS % (AUTO) 2.4 % (0.0-6.0); HEMATOCRIT 42 % (33-45); HEMOGLOBIN 14.3 g/dL (11.5-14.8); LYMPHOCYTES # (AUTO) 0.9 K/uL (0.8-4.8); LYMPHOCYTES % (AUTO) 11.4 % (20.0-44.0); MEAN CORPUSCULAR HGB CONC 34 g/dl (31.0-36.0); MEAN CORPUSCULAR VOLUME 91 fL (82-100); MONOCYTES # (AUTO) 0.8 K/uL (0.1-1.30); MONOCYTES % (AUTO) 9.4 % (2.0-12.0); NEUTROPHILS # (AUTO) 6.3 K/uL (1.8-8.9); NEUTROPHILS % (AUTO) 76.3 % (43.0-81.0); PLATELET COUNT (AUTO) 205 K/uL (150-450); RED BLOOD CELL COUNT(AUTO) 4.55 MIL/uL (4.0-5.2); WHITE BLOOD COUNT (AUTO) 8.3 K/uL (4.3-11.0)
[2022-10-03] MEDS ORDERED: ALBUTEROL FS 2.5 MG/3 ML VIAL.NEB NEB ONE (19:00)
[2022-10-03] MEDS ORDERED: methylPREDNISolone SOD SUCC 125 MG/2ML VIAL IV ONE (19:00)
[2022-10-03] MEDS ORDERED: IPRATROPIUM NEB FS 0.5 MG/2.5 ML AMPUL.NEB NEB ONE (19:00)
--- NOTE | 2022-10-03 19:07 | NUR ---
COUGH AND CONGESTION STARTED YESTERDAY, NO FEVER . DENIES CHEST PAIN.
--- NOTE | 2022-10-03 19:08 | NUR ---
arturo sent to lab
[2022-10-03 19:09] LABS: CALCIUM, SERUM 9.5 mg/dL (8.5-10.1); CARBON DIOXIDE 27 mmol/L (21-32); CHLORIDE 99 mmol/L (98-107); GLUCOSE 103 mg/dL (74-106); POTASSIUM 3.4 mmol/L (3.5-5.1); SODIUM SERUM 135 mmol/L (136-145); UREA NITROGEN, BLOOD 20 mg/dL (7-18)
[2022-10-03 19:23] LABS: ALANINE AMINOTRANSFERASE 16 U/L (12-78); ALBUMIN 3.6 g/dL (3.4-5.0); ALKALINE PHOSPHATASE 63 U/L (46-116); ASPARTATE AMINOTRANSFERASE 20 U/L (15-37); BILIRUBIN,DIRECT 0.2 mg/dL (0.0-0.2); BILIRUBIN,TOTAL 0.8 mg/dL (0.2-1.0); TOTAL PROTEIN, SERUM 7.6 g/dL (6.4-8.2)
[2022-10-03 19:45] VITALS: O2SAT 100
[2022-10-03] MEDS ORDERED: IPRATROPIUM NEB FS 0.5 MG/2.5 ML AMPUL.NEB ONE (19:51)
[2022-10-03] MEDS ORDERED: ALBUTEROL FS 2.5 MG/3 ML VIAL.NEB ONE (19:51)
[2022-10-03] MEDS ORDERED: PRED50TA PO (19:53)
[2022-10-03] MEDS ORDERED: GUAI-671 PO (19:53)
[2022-10-03] MEDS ORDERED: ALBU8.5H8 INH (19:53)
--- NOTE | 2022-10-03 19:56 | NUR ---
RT AT BEDSIDE FOR BREATHING TREATMENT.
[2022-10-03 20:00] VITALS: O2SAT 100
[2022-10-03 20:11] VITALS: BP 126/88; TEMP 98.2; O2SAT 96
--- NOTE | 2022-10-03 20:11 | NUR ---
Patient discharged to home in stable condition. Written and verbal after care instructions given to pt and pt's daughter. Patient verbalizes understanding of instruction.
--- NOTE | 2022-10-03 20:11 | NUR ---
IV removed. Catheter intact and site benign. Pressure and 4x4 applied to site. No bleeding noted.
== END 2022-10-03 20:12 | disposition home or self-care (01) ==
LOC: ER 18:18
DX: J45.901 Unspecified asthma with (acute) exacerbation (principal); I10 Essential (primary) hypertension; E78.5 Hyperlipidemia, unspecified; I25.10 Atherosclerotic heart disease of native coronary artery without angina pectoris; F32.A Depression, unspecified; Z79.899 Other long term (current) drug therapy; Z60.2 Problems related to living alone
CPT/HCPCS: 99285; 96374; 71045; 93005; 85025; 80048; 80076; 36415; 84484; 83880; 94640; J2930

== ENCOUNTER 2023-06-30 15:14 | Emergency (ER) | payer BC, OTHER ==
[~2023-06-30] VITALS: Ht 154.9 cm; Wt 63.5 kg
[~2023-06-30 15:14] MED LIST changes: +ALBU8.5H8 INH; +GUAI-671 PO; +PRED50TA PO
[2023-06-30] MEDS ORDERED: methylPREDNISolone SOD SUCC 40 MG/ML VIAL ONE (17:40)
[2023-06-30] MEDS ORDERED: BACLOFEN (10 MG) 10 MG TABLET ONE (17:40)
[2023-06-30] MEDS ORDERED: KETOROLAC TROMETHAMINE INJ 30 MG/ML VIAL ONE (17:40)
[2023-06-30] MEDS: methylPREDNISolone SOD SUCC 40 MG/ML VIAL IM ONE (17:47)
[2023-06-30] MEDS: KETOROLAC TROMETHAMINE INJ 30 MG/ML VIAL IM ONE (17:48)
[2023-06-30] MEDS: BACLOFEN (10 MG) 10 MG TABLET PO ONE (17:48)
[2023-06-30 18:19] VITALS: TEMP 98.5
[2023-06-30] MEDS ORDERED: BACL10TA PO (19:32)
[2023-06-30] MEDS ORDERED: KETO10TA2 PO (19:32)
[2023-06-30 19:58] VITALS: BP 128/69; O2SAT 99
== END 2023-06-30 19:58 | disposition home or self-care (01) ==
LOC: ER 15:31
DX: M62.830 Muscle spasm of back (principal); I10 Essential (primary) hypertension; Z60.2 Problems related to living alone
CPT/HCPCS: 99285; 96372 ×2; 72125; 73200; J2920; J1885; J2919

== ENCOUNTER 2023-10-06 16:54 | Emergency (ER) | payer BC, OTHER ==
[~2023-10-06] VITALS: Ht 154.9 cm; Wt 69.9 kg
[~2023-10-06 16:54] MED LIST changes: +BACL10TA PO; +KETO10TA2 PO
[2023-10-06 17:39] LABS: BASOPHILS % (AUTO) 0.6 % (0.0-2.0); EOSINOPHILS # (AUTO) 0.1 K/uL (0.0-0.7); EOSINOPHILS % (AUTO) 2.1 % (0.0-6.0); HEMATOCRIT 38 % (33-45); HEMOGLOBIN 13.4 g/dL (11.5-14.8); MEAN CORPUSCULAR HEMOGLOBIN 32 PG (26.0-33.0); MEAN CORPUSCULAR HGB CONC 35 g/dl (31.0-36.0); MEAN CORPUSCULAR VOLUME 90 fL (82-100); MONOCYTES # (AUTO) 0.5 K/uL (0.1-1.30); MONOCYTES % (AUTO) 7.4 % (2.0-12.0); NEUTROPHILS % (AUTO) 74.9 % (43.0-81.0); PLATELET COUNT (AUTO) 254 K/uL (150-450); RED BLOOD CELL COUNT(AUTO) 4.23 MIL/uL (4.0-5.2); RED CELL DISTRIBUTION WIDTH 12.6 % (11.5-15.0); WHITE BLOOD COUNT (AUTO) 6.6 K/uL (4.3-11.0)
[2023-10-06 17:48] LABS: CALCIUM, SERUM 8.5 mg/dL (8.5-10.1); CARBON DIOXIDE 30 mmol/L (21-32); CHLORIDE 99 mmol/L (98-107); CREATININE 1.1 mg/dL (0.6-1.3); GLUCOSE 114 mg/dL (74-106); POTASSIUM 3.2 mmol/L (3.5-5.1); SODIUM SERUM 133 mmol/L (136-145); UREA NITROGEN, BLOOD 17 mg/dL (7-18)
[2023-10-06] MEDS ORDERED: LOSA1TAB39 PO (17:56)
[2023-10-06] MEDS ORDERED: ALBU18HF2 IH (17:56)
[2023-10-06] MEDS ORDERED: METO25TA4 PO (17:56)
[2023-10-06 18:00] LABS: ALANINE AMINOTRANSFERASE 17 U/L (12-78); ALBUMIN 3.3 g/dL (3.4-5.0); ALKALINE PHOSPHATASE 55 U/L (46-116); ASPARTATE AMINOTRANSFERASE 17 U/L (15-37); BILIRUBIN,DIRECT 0.2 mg/dL (0.0-0.2); BILIRUBIN,TOTAL 0.8 mg/dL (0.2-1.0); NT-PRO BNP 93 pg/mL (0-125); TOTAL PROTEIN, SERUM 6.5 g/dL (6.4-8.2)
[2023-10-06] MEDS ORDERED: ASPIRIN 325 MG TABLET ONE (18:17)
[2023-10-06] MEDS: ASPIRIN 325 MG TABLET PO ONE (18:18)
[2023-10-07 01:03] VITALS: BP 140/51; TEMP 98; O2SAT 98
== END 2023-10-07 01:04 | disposition short-term general hospital (02) ==
LOC: ER 17:07
DX: R07.9 Chest pain, unspecified (principal); I10 Essential (primary) hypertension; Z60.2 Problems related to living alone; Z20.822 Contact with and (suspected) exposure to COVID-19
CPT/HCPCS: 36415; 71045-TC; 80048-TC; 80076-TC; 83880; 84484-TC; 85025-TC

== ENCOUNTER 2024-04-23 09:13 | Emergency (ER) | payer BC, MEDICAID ==
[~2024-04-23] VITALS: Ht 152.4 cm; Wt 64.4 kg
[~2024-04-23 09:13] MED LIST changes: +ALBU18HF2 IH; -ALBU8.5H8 INH; -BACL10TA PO; -CLON0.1T PO; -GUAI-671 PO; -HYDR-3976 PO; -IBUP-1955 PO; -KETO10TA2 PO; -LIDO30AD10 TP; +LOSA1TAB39 PO; -LOSA50TA39 PO; +METO25TA4 PO; -POTA8TAB3 PO; -PRED50TA PO
[2024-04-23] MEDS ORDERED: MECLIZINE HCL 25 MG TABLET ONE (09:48)
[2024-04-23] MEDS ORDERED: LORAZEPAM INJ 2 MG/ML VIAL ONE (09:49)
[2024-04-23 09:54] LABS: BASOPHILS # (AUTO) 0.1 K/uL (0.0-0.2); BASOPHILS % (AUTO) 1.1 % (0.0-2.0); EOSINOPHILS # (AUTO) 0.2 K/uL (0.0-0.7); HEMATOCRIT 39 % (33-45); HEMOGLOBIN 14.4 g/dL (11.5-14.8); LYMPHOCYTES % (AUTO) 18.3 % (20.0-44.0); MEAN CORPUSCULAR HEMOGLOBIN 33 PG (26.0-33.0); MEAN CORPUSCULAR HGB CONC 37 g/dl (31.0-36.0); MEAN CORPUSCULAR VOLUME 90 fL (82-100); MONOCYTES # (AUTO) 0.4 K/uL (0.1-1.30); MONOCYTES % (AUTO) 7.5 % (2.0-12.0); NEUTROPHILS # (AUTO) 3.7 K/uL (1.8-8.9); NEUTROPHILS % (AUTO) 69.1 % (43.0-81.0); PLATELET COUNT (AUTO) 233 K/uL (150-450); RED CELL DISTRIBUTION WIDTH 12.8 % (11.5-15.0); WHITE BLOOD COUNT (AUTO) 5.4 K/uL (4.3-11.0)
[2024-04-23] MEDS: LORAZEPAM INJ 2 MG/ML VIAL IV ONE (10:00)
[2024-04-23] MEDS: IV NS 0.9% 1,000 ML BAG IV ONE (10:00)
[2024-04-23 10:01] LABS: CALCIUM, SERUM 9.7 mg/dL (8.5-10.1); CARBON DIOXIDE 31 mmol/L (21-32); CHLORIDE 104 mmol/L (98-107); GLUCOSE 108 mg/dL (74-106); POTASSIUM 3.6 mmol/L (3.5-5.1); SODIUM SERUM 143 mmol/L (136-145); UREA NITROGEN, BLOOD 21 mg/dL (7-18)
[2024-04-23] MEDS: MECLIZINE HCL 12.5 MG TABLET PO ONE (10:03)
[2024-04-23 10:07] LABS: PARTIAL THROMBOPLASTIN TIME 23.1 SEC (24.3-34.3); PROTHROMBIN TIME 10.6 SECS (9.2-11.1)
[2024-04-23 11:14] LABS: APPEARANCE,URINE CLEAR (CLEAR); BILIRUBIN,URINE NEGATIVE (NEGATIVE); BLOOD, URINE TRACE-INTA Ery/uL (NEGATIVE); COLOR,URINE YELLOW (YELLOW); KETONES,URINE NEGATIVE (NEGATIVE); LEUKOCYTE ESTERASE ,URINE NEGATIVE (NEGATIVE); NITRITE, URINE NEGATIVE (NEGATIVE); PROTEIN,URINE NEGATIVE (NEGATIVE); UGLUCOSE NEGATIVE (NEGATIVE); UROBILINOGEN,URINE 0.2 EU/dL (0.2)
[2024-04-23 11:17] LABS: ADD URINE CULTURE NO; BACTERIA,URINE Rare /HPF (None Seen); RBC,URINE 0-2 /HPF (0-2); WBC,URINE 0-2 /HPF (0-3)
[2024-04-23] MEDS ORDERED: MECL-182 PO (11:46)
[2024-04-23 12:45] VITALS: BP 122/74; TEMP 98.8; O2SAT 98
== END 2024-04-23 12:45 | disposition home or self-care (01) ==
LOC: ER 09:22
DX: H81.391 Other peripheral vertigo, right ear (principal); I10 Essential (primary) hypertension; Z79.899 Other long term (current) drug therapy
CPT/HCPCS: 99285; 96374; 70450; 71045; 96361; 93005; 85025; 80048; 81001; 36415; 84484; 85730; 82962; J8597; J2060; J7030; A4223

== ENCOUNTER 2024-09-17 14:18 | Emergency (ER) | payer BC, MEDICAID ==
[~2024-09-17] VITALS: Ht 154.9 cm; Wt 68.0 kg
[~2024-09-17 14:18] MED LIST changes: +MECL-182 PO
[2024-09-17 14:32] VITALS: TEMP 98.2
[2024-09-17] MEDS: KETOROLAC TROMETHAMINE 15 MG/ML VIAL IM ONE (14:47)
[2024-09-17] MEDS ORDERED: LIDOCAINE 5% (PATCH) 1 EA PATCH TP ONE (14:51)
[2024-09-17] MEDS ORDERED: CYCLOBENZAPRINE 10 MG TABLET ONE (14:51)
[2024-09-17] MEDS ORDERED: KETOROLAC TROMETHAMINE 15 MG/ML VIAL ONE (14:51)
[2024-09-17] MEDS: LIDOCAINE 5% (PATCH) 1 EA PATCH TP SCH (14:57)
[2024-09-17] MEDS: CYCLOBENZAPRINE 10 MG TABLET PO ONE (14:57)
[2024-09-17] MEDS ORDERED: CYCL5POW MC (15:05)
[2024-09-17] MEDS ORDERED: LIDO30AD10 TP (15:05)
[2024-09-17 15:22] VITALS: BP 130/72; O2SAT 96
== END 2024-09-17 15:21 | disposition home or self-care (01) ==
LOC: ER 14:24
DX: M62.830 Muscle spasm of back (principal); I10 Essential (primary) hypertension; Z79.899 Other long term (current) drug therapy; Z60.2 Problems related to living alone
CPT/HCPCS: 99283; 96372; J1885